=== PATIENT | female | born 1985 | race Caucasian/White ===

== ENCOUNTER 2020-12-19 16:11 | Inpatient (IN) | payer OTHER ==
[~2020-12-19] VITALS: Ht 152.4 cm; Wt 70.0 kg
[2020-12-19] MEDS ORDERED: HYDROmorphone 2 MG/ML VIAL IVP ONE ×2 (16:15→17:15)
[2020-12-19] MEDS ORDERED: IV NORMAL SALINE 1000ML BAG 1,000 ML IV ONE (17:15)
[2020-12-19] MEDS ORDERED: KETAMINE HCL 500 MG/10 ML VIAL. IV ONE (17:30)
--- NOTE | 2020-12-19 18:12 | RAD ---
Three-view left knee, three-view left ankle, 3 views left foot and two-view left tibia-fibula dated . No comparison available. Clinical data indication: Pain after injury. FINDINGS: 3 views of right knee show normal bony alignment. No displaced fracture. No acute osseous or articula r abnormality. No apparent joint effusion or loose body. 3 views of left ankle show an oblique fracture at the distal fibula with dorsal lateral displacement and dorsal angulation at the fracture site. There is posterior dislocation of the talus relative to t he distal tibia. Suspected small fracture of the posterior malleolus. No definite medial malleolar fr acture. Talar dome is intact. Diffuse soft tissue swelling. 2 views of the tibia fibula show no evidence of proximal tibia or fibular shaft fracture. 3 views of the left foot show normal bony alignment. No displaced fracture. No acute osseous or artic ular abnormality. No periostitis or bone destruction. IMPRESSION: Ankle fracture-dislocation as described. Electronically signed by: David Oropeza MD (12/19/2020 6:09 PM) [facility]
[2020-12-19 18:22] VITALS: BP 168/70
[2020-12-19] MEDS ORDERED: MIDAZOLAM HCL/PF 5 MG/5 ML VIAL. ONE (18:24)
[2020-12-19] MEDS ORDERED: PROPOFOL 10 MG/ML (20ML) VIAL. IV ONE ×2 (18:36→19:30)
--- NOTE | 2020-12-19 18:58 | PHYS DOC ---
Past Medical History Past Surgical History: No Surgical History (DHAVAL COONEY DO) Smoking Status: Never Smoker Alcohol Use: None (DHAVAL COONEY DO) General Adult EDM: Chief Complaint: ANKLE PROBLEM HPI: HPI: 35-year-old female with no significant past medical history, presents to the ED with complaints of left ankle pain after patient was sliding down an outdoor slide. States she was going too fast when she tried to slow herself down with her left foot (motions dorsiflexion position) and felt a pop. Patient cannot bear weight on the left ankle. No prior injury to this extremity. History of multiple right ankle sprains. Patient did not hit her head or lose consciousness. Was not under the influence of any alcohol or drugs. Patient is currently on her menses and request to sign waiver for x-ray imaging. History of nausea with anesthesia. Reports associated tingling to the top of her left foot. (DHAVAL COONEY DO) Review of Systems: Review of Systems: Constitutional: Denies fever or chills. [] Eyes: Denies change in visual acuity. [] HENT: Denies nasal congestion or sore throat. [] Respiratory: Denies cough or shortness of breath. [] Cardiovascular: Denies chest pain or edema. [] GI: Denies nausea or vomiting : Denies dysuria or hematuria Musculoskeletal: Denies midline back pain, knee pain or hip pain Integument: Denies rash or diaphoresis Neurologic: Denies headache, neck pain, focal weakness or sensory changes. [] Endocrine: Denies polyuria or polydipsia. [] Lymphatic: Denies swollen glands. [] Psychiatric: Denies depression or anxiety. [] (DHAVAL COONEY DO) Heart Score: C/O Chest Pain: No Risk Factors: Risk Factors: DM, Current or recent (<one month) smoker, HTN, HLP, family history of CAD, obesity. Risk Scores: Score 0 - 3: 2.5% MACE over next 6 weeks - Discharge Home Score 4 - 6: 20.3% MACE over next 6 weeks - Admit for Clinical Observation Score 7 - 10: 72.7% MACE over next 6 weeks - Early Invasive Strategies (DHAVAL COONEY DO) C/O Chest Pain: N/A (BRIAN REYNOLDS DO) Current Medications: Current Medications Medications (Trade) Dose Ordered Sig/Alfonso Start Time Stop Time Status Last Admin Dose Admin Hydromorphone HCl (Dilaudid) 1 mg 1X ONCE 12/19/20 17:15 12/19/20 17:16 DC 12/19/20 17:10 1 MG Ketamine HCl (Ketamine) 150 mg 1X ONCE 12/19/20 17:30 12/19/20 17:31 DC Midazolam HCl (Versed) 5 mg STK-MED ONCE 12/19/20 18:24 12/19/20 18:25 DC Propofol (Diprivan) 200 mg STK-MED ONCE 12/19/20 18:36 12/19/20 18:37 DC Sodium Chloride 1,000 ml @ 1,000 mls/hr 1X ONCE 12/19/20 17:15 12/19/20 18:14 DC (DHAVAL COONEY DO) Allergies: Allergies: Allergies Coded Allergies Type Severity Reaction Last Updated Verified No Known Drug Allergies 12/19/20 No (DHAVAL COONEY DO) Physical Exam: PE: Constitutional: Tearful, in pain HENT: Normocephalic, atraumatic, Eyes: PERRLA, EOMI, tearful, conjunctiva normal, no discharge. Neck: Normal range of motion, supple, Cardiovascular: S1/2 present, regular rhythm Lungs & Thorax: Speaking in full sentences, bilateral equal chest rise, no tachypnea or increased work of breathing Skin: Warm, dry, Extremities: Ankle with anterior deformity, left dp/pt pulses intact, no pain at left knee/fibular head, L5/S1 sensation intact Neurologic: Alert and oriented X 3, GCS15, normal sensory function, Psychologic: Affect normal, judgement normal, mood normal. [] (DHAVAL COONEY DO) Current Patient Data: Vital Signs: Vital Signs Date Time Temp Pulse Resp B/P (MAP) Pulse Ox O2 Delivery O2 Flow Rate FiO2 12/19/20 17:10 16 98 Room Air 12/19/20 16:14 98.5 102 154/86 (108) 98.5 (DHAVAL COONEY DO) EKG: EKG: [] (DHAVAL COONEY DO) Radiology/Procedures: Radiology/Procedures: []IMAGING REPORT Signed PATIENT: DHAVAL SOLO Arsenio ACCOUNT: [id number] : 1985 LOCATION: ER AGE: 35 SEX: F EXAM STATUS: PRE ER ORD. PHYSICIAN: DHAVAL COONEY DO REASON: gonsalves defomrity PROCEDURE: ANKLE LEFT 3V Three-view left knee, three-view left ankle, 3 views left foot and two-view left tibia-fibula dated 12/19/2020. No comparison available. Clinical data indication: Pain after injury. FINDINGS: 3 views of right knee show normal bony alignment. No displaced fracture. No acute osseous or articular abnormality. No apparent joint effusion or loose body . 3 views of left ankle show an oblique fracture at the distal fibula with dorsal lateral displacement and dorsal angulation at the fracture site. There is posterior dislocation of the talus relative to the distal tibia. Suspected small fracture of the posterior malleolus. No definite medial malleolar fracture. Talar dome is intact. Diffuse soft tissue swelling. 2 views of the tibia fibula show no evidence of proximal tibia or fibular shaft fracture. 3 views of the left foot show normal bony alignment. No displaced fracture. No acute osseous or articular abnormality. No periostitis or bone destruction. IMPRESSION: Ankle fracture-dislocation as described. Electronically signed by: David Oropeza MD (12/19/2020 6:09 PM) [facility] [place] DICTATED and SIGNED BY: DAVID OROPEZA MD DATE: 12/19/20 [id number] Indication: Joint dislocation Consent: Consent was obtained. Procedure: The pre-reduction exam showed distal perfusion and neurologic function to be normal.. The patient was placed in the appropriate position. Anesthesia/pain control fully obtained with propofol 100mg. . Reduction of the left posterior ankle was performed by traction/countertraction. Post reduction films were obtained and revealed satisfactory reduction. A post-reduction exam revealed distal perfusion and neurologic function to be normal. The affected area was immobilized with left posterior ankle/stirrup leg splint. The patient tolerated the procedure well and reported paresthesias in the dorsum of her left foot have resolved. Complications: 75 mg of ketamine caused tachycardia. Unable to sedate with Versed 5 mg. Indication: Left posterior ankle dislocation Consent: I have discussed with the patient and/or the patient client account representative the indication, alternatives, and the possible risks and /or complications of the planned procedure and the anesthesia methods. The patient and/or patient client account representative appear to understand and agree to proceed. Pre-Sedation Documentation and Exam: dry membranes, Mallampati 1 Airway Assessment: normal. Prior History of Anesthesia Complications: none. ASA Classification: 1 Sedation/ Anesthesia Plan: Ketamine Medications Used: see nursing notes. Monitoring and Safety: The patient was placed on a cardiac specialist and vital signs, pulse oximetry and level of consciousness were continuously evaluated throughout the procedure. The patient was closely monitored until recovery from the medications was complete and the patient had returned to baseline status. Respiratory therapy was on standby at all times during the procedure. (The following sections must be completed) Post-Sedation Vital Signs: Hemodynamically stable Post-Sedation Exam: Hemodynamically stable, tachycardia resolved Complications: none. (DHAVAL COONEY DO) Course & Med Decision Making: Course & Med Decision Making Pertinent Labs and Imaging studies reviewed. (See chart for details) Concern for left ankle dislocation and lateral malleoli fracture-patient sedated, reduced and splinted. Postreduction films pending. Due to shift change patient was signed out to oncoming physician Dr. Reynolds for further medical evaluation disposition. (DHAVAL COONEY DO) Course & Med Decision Making Patient is a 25-year-old female who sustained a fracture dislocation of the left ankle, it was reduced. Discussed with orthopedic surgeon on-call Dr. Alexandro ESCOBEDO who recommended patient be admitted to hospital service and he will see patient for operation tomorrow. Discussed with the hospitalist on- call Dr. Ellsworth who agreed to admit the patient. (BRIAN REYNOLDS DO) Dragon Disclaimer: Dragon Disclaimer: This electronic medical record was generated, in whole or in part, using a voice recognition dictation system. (DHAVAL COONEY DO) Departure Departure Impression: Primary Impression: Ankle fracture, left Additional Impression: Closed dislocation of left ankle Disposition: ADMITTED INPATIENT Admitting Physician: VIDA (DR. SO) (BRIAN REYNOLDS DO) Condition: STABLE DHAVAL COONEY DO Dec 19, 2020 18:58 BRIAN REYNOLDS DO Dec 19, 2020 19:30
--- NOTE | 2020-12-19 19:18 | RAD ---
Three-view left ankle dated 12/19/2020. Comparison: CLINICAL INDICATION: Pain. FINDINGS: 3 views left ankle show normal bony alignment. There is an oblique fracture through the distal one th ird fibular extending to the ankle mortise. Transverse fracture of the medial malleolus. There is als o small fracture at the posterior malleolus. The talar dome is intact. No significant malalignment. D iffuse soft tissue swelling. Improved alignment after cast placement. IMPRESSION: 1. Trimalleolar fracture with improved alignment after cast/splint placement. IMPRESSION: No acute radiographic abnormality. Electronically signed by: David Oropeza MD (12/19/2020 7:16 PM) [facility]AKA
[2020-12-19] MEDS ORDERED: MIDAZOLAM HCL/PF 5 MG/5 ML VIAL. NS ONE (19:30)
[2020-12-19] MEDS ORDERED: ONDANSETRON PF 4 MG/2 ML VIAL. IVP PRN (19:45)
[2020-12-19] MEDS ORDERED: ONDANSETRON PF 4 MG/2 ML VIAL. IVP ONE (20:00)
[2020-12-19] MEDS ORDERED: METOCLOPRAMIDE HCL 10 MG/2 ML VIAL. IVP ONE (21:30)
[2020-12-19] MEDS: MORPHINE SULFATE 4 MG/ML INJ. IVP PRN (21:47)
[2020-12-20] MEDS: IV NORMAL SALINE 1000ML BAG 1,000 ML IV SCH ×2 (03:18→09:20)
[2020-12-20] MEDS: MORPHINE SULFATE 4 MG/ML INJ. IVP PRN (03:20)
[2020-12-20] MEDS ORDERED: CETI10TA74 PO (04:34)
[2020-12-20] MEDS ORDERED: FLUT9.9S NS (04:34)
[2020-12-20 05:43] VITALS: BP 126/61
[2020-12-20 07:00] VITALS: BP 135/72
[2020-12-20] MEDS ORDERED: ACETAMINOPHEN 325 MG TABLET. PO ONE (08:15)
[2020-12-20] MEDS ORDERED: SCOPOLAMINE 1.5MG PATCH. TD ONE ×2 (09:00→10:00)
[2020-12-20] MEDS ORDERED: ONDANSETRON PF 4 MG/2 ML VIAL. ONE (09:10)
[2020-12-20] MEDS ORDERED: DEXAMETHASONE SOD PHOS 4 MG/ML VIAL ONE (09:10)
[2020-12-20] MEDS ORDERED: LIDOCAINE 2% PF 5 ML VIAL. ONE (09:12)
[2020-12-20] MEDS ORDERED: PROPOFOL 10 MG/ML (20ML) VIAL. IV ONE (09:12)
[2020-12-20] MEDS ORDERED: MORPHINE SULFATE 2 MG/ML INJ. IVP PRN ×2 (09:30→10:00)
[2020-12-20] MEDS ORDERED: IV RINGERS,LACTATED 1000ML 1,000 ML IV SCH (09:30)
[2020-12-20] MEDS ORDERED: fentaNYL PF VIAL 100 MCG/2 ML VIAL IVP PRN (09:30)
[2020-12-20] MEDS ORDERED: PROCHLORPERAZINE 10 MG/2 ML VIAL. IVP PRN (09:30)
[2020-12-20] MEDS ORDERED: MIDAZOLAM HCL/PF 2 MG/2 ML VIAL. ONE (09:53)
--- NOTE | 2020-12-20 09:53 | PDOC2 ---
Consult: DATE OF CONSULT: 12/20/2020 HISTORY Patient seen evaluated in the preoperative holding area. She was admitted to the hospital yesterday evening for an ankle injury that occurred while she was at a pumpkin patch. She was going down a slide and got her foot caught. She felt and heard a pop and had immediate pain and inability to bear weight. She was seen in the emergency department. Initial x-rays revealed a trimalleolar fracture dislocation of the left ankle. The injury was closed reduced and post reduction x-rays revealed improved alignment. Review of systems is negative with the exception of his complaints IN HISTORY Past medical, surgical, family, and social history were reviewed in the EMR as of 12/20/2020 Physical exam: GENERAL: NAD HEAD: NCAT CHEST: No audible wheeze CV: extremities withour cyanosis ABD: soft Neuro: Alert and Awake MSK: Left ankle reveals splint to be intact. Compartments are soft. Neurovascular status is intact to the toes. Stability exam was not performed today due to known fracture as well as splint application. Diagnosis/ Plan Closed acute left ankle fracture dislocation with trimalleolar fracture. Risk benefits possible complications alternative treatments were explained to the patient with regards to treatment options. Given her young age and unstable fracture pattern surgical treatment was recommended. We discussed 6 to 8 weeks of nonweightbearing. Possibility for arthritis in the future. Proceed with open reduction internal fixation left ankle. EVANS ESCOBEDO DO Dec 20, 2020 9:53 am
--- NOTE | 2020-12-20 09:54 | PDOC4 ---
OPERATIVE NOTE: SURGERY DATE: December 20, 2020 PROCEDURE: Open reduction internal fixation left distal fibula fracture with syndesmotic fixation PREOPERATIVE DIAGNOSIS: Left ankle fracture, unstable POSTOPERATIVE DIAGNOSIS: Same SURGEON: Boyd Pa D.O. ASSIGNMENT DESK ASSISTANT: None ANESTHESIA: General EBL: <50cc SPECIMEN: None POSITION: Supine COMPLICATIONS: None IMPLANT SPECIFICATIONS: [employer] small fragment set DESCRIPTION OF PROCEDURE: The patient was seen in the preoperative holding area, the site was marked, and consent was verified. Patient received preoperative antibiotics and was wheeled back to the operating room. The Department of Anesthesia administered anesthetic and maintained control of the airway. A tourniquet was placed proximal on the operative extremity. Time out was observed. Sterile prep and drape was performed of the operative extremity. Esmarch was used to exsanguinate the limb and tourniquet was inflated. At this point a 10 cm incision was made laterally over the distal fibula. Soft tissue dissection was carried out sharply down to the fascial layer. The fascia was split just anterior to the peroneal tendons and muscle. This allowed direct visualization of the lateral cortex at the fibula distally. The fracture was identified, and a direct reduction was performed with lobster claw clamps. The fracture was fixed using a one third tubular plate and multiple AO screws. These were bicortical proximal to the fracture and deep unicortical cancellous screws distal. The wound was copiously irrigated, and a moist sponge was placed. Using fluoroscopy and external rotation view was obtained. The cotton test was performed revealing syndesmotic widening. At this point the syndesmosis screw were placed. We used 4 cortices screws x1. These were placed with syndesmotic compression with the foot in maximal dorsiflexion. Copious irrigation was run through the Wounds. Final x-rays using fluoroscopy were obtained. Cotton test and external rotation stress were performed and found to reveal no medial widening. Copious irrigation was run through the incision(s) and layered closure was performed. A large bulky dressing was applied. Anesthesia was reversed and the patient was transferred to postop in apparent stable condition. DISPOSITION: The patient will be discharged to home non-weight bearing and follow up in the clinic Prognosis: Fair. EVANS PA DO Dec 20, 2020 9:54 am
[2020-12-20] MEDS ORDERED: fentaNYL PF VIAL 100 MCG/2 ML VIAL ONE ×2 (09:55→11:49)
[2020-12-20] MEDS ORDERED: BUPIVACAINE-EPI 0.25%-1:200000 MPF 30 ML VIAL. ONE (09:57)
[2020-12-20] MEDS ORDERED: PROC10TA57 PO (09:59)
[2020-12-20] MEDS ORDERED: OXYC5TAB2 PO (09:59)
[2020-12-20] MEDS ORDERED: MORPHINE SULFATE 4 MG/ML INJ. IVP PRN (10:00)
[2020-12-20] MEDS ORDERED: ceFAZolin 2GM PREMIX 2 GM/50 ML BAG IV ONE (10:00)
[2020-12-20] MEDS ORDERED: DEXTROSE 50% 25 GM / 50ML DISP.SYRIN. IV PRN (10:00)
--- NOTE | 2020-12-20 10:03 | DISCH ---
DISCHARGE INSTRUCTIONS Condition on Discharge Condition on Discharge: Stable Activity After Discharge Activity Instructions for Disc: Avoid exertion Other activity instructions: no weight left leg Bathing Instructions: Shower-keep dressing dry Driving Instructions after Dis: Do not drive today Weight Bearing Status after Di: Non weight bearing Diet after Discharge Diet after Discharge: Regular Wound Incision Care Wound/Incision Care: Ice to area for comfort, Keep wound/cast CDI, Keep wound elevated, Do not change dressing Contacting the DR. after DC Call your doctor for: If your condition worsens Treatment/Equipment after DC Comment: knee EVANS Cheema DO Dec 20, 2020 10:03 am
[2020-12-20] MEDS ORDERED: diphenhydrAMINE 50 MG/ML VIAL ONE (10:26)
[2020-12-20] MEDS ORDERED: KETOROLAC 30 MG/ML VIAL. ONE (10:31)
[2020-12-20] MEDS ORDERED: FAMOTIDINE 20 MG/2 ML VIAL ONE (10:39)
[2020-12-20] MEDS ORDERED: BUPIVACAINE-EPI 0.25%-1:200000 MPF 30 ML VIAL. INJ ONE (10:41)
[2020-12-20] MEDS ORDERED: HYDROmorphone 2 MG/ML VIAL ONE (11:42)
[2020-12-20] MEDS: HYDROmorphone 2 MG/ML VIAL IVP PRN ×3 (11:45→12:17)
[2020-12-20] MEDS: fentaNYL PF VIAL 100 MCG/2 ML VIAL IVP PRN ×3 (11:52→12:25)
--- NOTE | 2020-12-20 14:41 | SSS ---
DATE OF SERVICE: 12/20/2020 ADMIT DATE: 12/19/2020 CHIEF COMPLAINT: Fall with left ankle pain. HISTORY OF PRESENT ILLNESS: The patient is a pleasant 35-year-old female who was at a pumpkin patch and went down a tube slide. Apparently, she used her foot to catch herself at the end and broke it. At this point, she went to the OR for ORIF. She is now being examined on the orthopedic floor where she is recovering. PAST MEDICAL HISTORY: Benign. ALLERGIES: None. FAMILY HISTORY: Diabetes. SOCIAL HISTORY: She does not drink, smoke or take drugs. She is . MEDICATIONS: Reviewed, please refer to the MRAD. REVIEW OF SYSTEMS: GENERAL: No history of weight change, weakness or fevers. SKIN: No bruising, hair changes or rashes. EYES: No blurred, double or loss of vision. NOSE AND THROAT: No history of nosebleeds, hoarseness or sore throat. HEART: No history of palpitations, chest pain or shortness of breath on exertion. LUNGS: Denies cough, hemoptysis, wheezing or shortness of breath. GASTROINTESTINAL: Denies changes in appetite, nausea, vomiting, diarrhea or constipation. GENITOURINARY: No history of frequency, urgency, hesitancy or nocturia. NEUROLOGIC: Denies history of numbness, tingling, tremor or weakness. PSYCHIATRIC: No history of panic, anxiety or depression. ENDOCRINE: No history of heat or cold intolerance, polyuria or polydipsia. EXTREMITIES: She complains of left foot pain. PHYSICAL EXAMINATION: VITALS: Within normal limits and are stable. GENERAL: No apparent distress. Alert and oriented. HEENT: Normal cephalic atraumatic, external auditory canals are patent. EYES: Extraocular muscles are intact, pupils are equally round and reactive to light and accommodation. MUSCULOSKELETAL: Well developed, well nourished, good range of motion. ENDOCRINE: No thyromegaly was palpated, LYMPHATICS: No cervical chain or axillary nodes were noted. HEMATOPOIETIC: No bruising. NECK: Supple, no JVD, no thyromegaly was noted. LUNGS: Clear to auscultation in all lung song without rhonchi or wheezing. HEART: RRR, S1, S2 present. Peripheral pulses intact, no obvious murmurs were noted. ABDOMEN: Soft, nontender. Positive bowel sounds no organomegaly, normal bowel sounds. EXTREMITIES: She has a cast on the left foot. NEUROLOGIC: Normal speech, normal tone. A and O x 3, moves all extremities, no obvious focal deficits. PSYCHIATRIC: Normal affect, normal mood. Stable. SKIN: No ulcerations or rashes, good skin turgor, no jaundice. VASCULAR: Good capillary refill, neurovascular bundle appears to be intact. ASSESSMENT AND PLAN: Fall with a left ankle fracture, status post open reduction and internal fixation this morning. She looks great. Right now, I suspect we will watch her overnight, give her some pain meds, encourage p.o. intake, some wound care, home meds, deep venous thrombosis prophylaxis, full code and discharge in the morning if stable. COOPER/ROCIO DR: Jorge TID: [id number]
[2020-12-20] MEDS: ONDANSETRON PF 4 MG/2 ML VIAL. IVP PRN (18:34)
[2020-12-20] MEDS: oxyCODONE IR 5 MG TABLET PO PRN (18:34)
[2020-12-20 19:30] VITALS: BP 110/72
[2020-12-20 23:04] VITALS: BP 108/71
[2020-12-21] MEDS: oxyCODONE IR 5 MG TABLET PO PRN ×2 (03:18→08:39)
[2020-12-21 03:29] VITALS: BP 122/74
[2020-12-21] MEDS: ONDANSETRON PF 4 MG/2 ML VIAL. IVP PRN (05:38)
[2020-12-21 07:00] VITALS: BP 134/72
[2020-12-21] MEDS ORDERED: MULTIVITAMIN with MINERAL TABLET. PO SCH (09:00)
[2020-12-21] MEDS ORDERED: SENNOSIDES/DOCUSATE 8.6/50MG TABLET. PO SCH (09:00)
[2020-12-21] MEDS ORDERED: DICLOFENAC SODIUM 1% TOPICAL GEL 100GM TUBE. TP SCH (10:15)
[2020-12-21] MEDS ORDERED: KETOROLAC 15 MG/ML VIAL. IVP ONE (10:15)
[2020-12-21] MEDS ORDERED: oxyCODONE/APAP 10/325 1 TAB TABLET PO PRN (10:15)
--- NOTE | 2020-12-21 10:41 | NUR ---
SW following. Discussed with RN, pt from home with spouse, room air, regular diet, COVID-19 negative. Therapy recommending home. RN advised no SW needs at this time, anticipates possible discharge home today. SW will continue to follow.
[2020-12-21 11:00] VITALS: BP 116/52
--- NOTE | 2020-12-21 15:15 | NUR ---
Discharge Note: DHAVAL SOLO Discharge instructions and discharge home medications reviewed with Patient and a copy given. All questions have been answered and understanding verbalized. The following instructions and handouts were given: information about activity, diet, weight bearing status, medications, follow up appointments, crutches. Discontinued lines and drains: IV in left hand removed, catheter tip intact. Patient discharged to home with self care with , wheelchair used for mobility to discharge vehicle.
[2020-12-21] MEDS ORDERED: OXYC1TAB22 PO (15:26)
--- NOTE | 2020-12-21 15:29 | PDOC3 ---
[facility]-Discharge Summary Date of Admission: Date of Admission: Dec 19, 2020 Date of Discharge: Date of Discharge: Dec 21, 2020 Admission Diagnosis: Problems: (1) Closed dislocation of left ankle (2) Ankle fracture, left Discharge Diagnosis: Discharge Diagnosis: Same Consults: Consults: Ortho Hospital Course: Hospital Course: The patient is a pleasant 35-year-old female who was at a pumpkin patch and went down a tube slide. Apparently, she used her foot to catch herself at the end and broke it. At this point, she went to the OR for ORIF. She is now being examined on the orthopedic floor where she is recovering 12/21 Patient evaluated and examined at bedside. She was doing well resting in bed. Cleared by PT OT and orthopedics. Discharge home today. Is complaining of some ongoing pain will prescribe some outpatient opioids for her. Follow-up with orthopedics. I spent greater than 30 minutes in the planning coordination and evaluation of the patient in regards to discharge. Disposition: Disposition/Orders: D/C to Home Activity: Activity: Resume previous activity Diet: Diet: Regular Medications: Home Meds Active Scripts Oxycodone/Apap 10-325 (PERCOCET 10-325 MG TABLET ) 1 Each Tablet, 1 TAB PO PRN Q4HRS PRN for Pain for 10 Days, #30 TAB Prov:EVANS MEDINA MD 12/21/20 Prochlorperazine Maleate (Compazine) 10 Mg Tablet, 1 TAB PO Q6HRS for nausea for 10 Days, #40 TAB 0 Refills Prov:EVANS ESCOBEDO DO 12/20/20 Oxycodone HCl (Oxycodone HCl) 5 Mg Tablet, 5 MG PO Q4-6HRS PRN for PAIN for 7 Days, #42 TAB 0 Refills Prov:EVANS ESCOBEDO DO 12/20/20 Reported Medications Cetirizine Hcl (ZYRTEC) 10 Mg Tablet, 1 TAB PO DAILY for allergies, TAB 12/20/20 Fluticasone Propionate (Flonase Allergy Relief) 9.9 Ml [place].susp, 2 SPRAYS NS DAILY for allergies, ML 12/20/20 Scheduled Cetirizine Hcl (Zyrtec), 1 TAB PO DAILY, (Reported) Fluticasone Propionate (Flonase Allergy Relief), 2 SPRAYS NS DAILY, (Reported) Prochlorperazine Maleate (Compazine), 1 TAB PO Q6HRS Scheduled PRN Oxycodone HCl (Oxycodone HCl), 5 MG PO Q4-6HRS PRN for PAIN Oxycodone/Apap 10-325 (Percocet 10-325 Mg Tablet ), 1 TAB PO PRN Q4HRS PRN for Pain Justicifation of Admission Dx: Justifications for Admission: Justification of Admission Dx: Yes Fracture: Fracture EVANS MEDINA MD Dec 21, 2020 15:29
== END 2020-12-21 15:15 | disposition home or self-care (01) | DRG 494 ==
LOC: ER 16:11 → ED HOLD 19:31 → 4 NORTH 22:55
PROVIDERS: ADMIT Internal Medicine; ATTEND Internal Medicine
PROC: 2W3RX1Z Immobilization of Left Lower Leg using Splint (ICD-10-PCS; 2020-12-19)
PROC: 0SSG04Z Reposition Left Ankle Joint with Internal Fixation Device, Open Approach (ICD-10-PCS; 2020-12-20)
PROC: 0QSK04Z Reposition Left Fibula with Internal Fixation Device, Open Approach (ICD-10-PCS; principal; 2020-12-20 10:00)
DX: S82.852A Displaced trimalleolar fracture of left lower leg, initial encounter for closed fracture (principal); S93.05XA Dislocation of left ankle joint, initial encounter; Z83.3 Family history of diabetes mellitus; W01.0XXA Fall on same level from slipping, tripping and stumbling without subsequent striking against object, initial encounter; Y93.89 Activity, other specified; Y92.89 Other specified places as the place of occurrence of the external cause; Y99.8 Other external cause status; Z20.822 Contact with and (suspected) exposure to COVID-19
CPT/HCPCS: 27810; 36415; 73562; 73590; 73610; 73630; 76000; 84702; 87426; 96361; 96374; 96375; 96376; A4930; A6253; A6402; A6449; A6455; C1713; J0690; J1100; J1170; J1200; J1885; J2250; J2270; J2405; J2704; J2765; J3010; J3490; J7030; U0003; U0005; 97116-GP; 97535-GO; 99285-25; G0378